=== PATIENT | male | born 1985 | race Caucasian/White ===

== ENCOUNTER 2023-05-03 10:21 | Emergency (ER) | payer SELFPAY ==
[2023-05-03 11:01] VITALS: BP 150/87; PULSE 80; RESP 18; TEMP 98.1; BMI 42.5
== END 2023-05-03 13:01 | disposition home or self-care (01) ==
LOC: JER 10:21
DX: F10.930 Alcohol use, unspecified with withdrawal, uncomplicated (principal); R00.1 Bradycardia, unspecified
CPT/HCPCS: 93005; 93010; 99283-25